=== PATIENT | female | born 1965 | race Caucasian/White ===

== ENCOUNTER 2020-02-29 12:37 | Inpatient (IN) | payer SELFPAY ==
[2020-02-29 13:32] LABS: #Basophils 0.1 thou/uL (0.0-0.2); #Eosinphils 0.1 thou/uL (0.0-0.7); #Lymphocytes 2.2 thou/uL (1.20-3.40); #Monocytes 0.4 thou/uL (0.11-0.59); #Neutrophils 5.9 thou/uL (1.40-6.50); %Basophils 0.7 % (0.0-1.0); %Eosinophils 1.4 % (0.0-10.0); %Lymphocytes 25.4 % (21.0-51.0); %Monocytes 4.2 % (0.0-10.0); %Neutrophils 68.2 % (42.0-75.0); Hemoglobin 16.1 g/dL (12.0-16.0); Mean Corpuscular HGB CONC 34.6 g/dL (32.0-36.0); Mean Corpuscular Hemoglobin 31.6 pg (27.0-31.0); Mean Corpuscular Volume 91.3 fL (78.0-98.0); Platelet Count 219 thou/uL (130-400); RBC Distribution Width 12.3 % (11.5-14.5); White Blood Cell (WBC) Count 8.7 thou/uL (4.8-10.8)
--- NOTE | 2020-02-29 13:42 | CT ---
CT BRAIN NONCONTRAST: DATE: 02/29/2020 HISTORY: 54-year-old female with left upper extremity weakness FINDINGS: There is no evidence of acute intra-axial or extra-axial hemorrhage. There is no midline shift or any other mass effect. There is no extra-axial fluid collection. The ventricles are normal in size and configuration. The tympanomastoid cavities, and the upper portions of the paranasal sinuses included in these images, are grossly clear. Calvarium is intact. IMPRESSION: Normal.
[2020-02-29 14:03] LABS: ALT (SGPT) 36 U/L (8-55); AST (SGOT) 30 U/L (5-34); Albumin 4.4 g/dL (3.5-5.0); Alkaline Phosphatase 145 U/L (40-110); Anion Gap 14 mmol/L (10-20); BUN (Urea Nitrogen) 13 mg/dL (9.8-20.1); Bilirubin, Total 0.9 mg/dL (0.2-1.2); Calc. Creatinine Clearance 0 mL/min (70-130); Calcium 9.2 mg/dL (7.8-10.44); Carbon Dioxide 27 mmol/L (22-29); Chloride 99 mmol/L (98-107); Estimated GFR-MDRD 77; Globulin 3.8 g/dL (2.4-3.5); Glucose 324 mg/dL (70-105); Potassium 3.5 mmol/L (3.5-5.1); Protein, Total 8.2 g/dL (6.0-8.3); Sodium 136 mmol/L (136-145)
[2020-02-29] MEDS ORDERED: Aspirin Chewable 81 MG TAB ONE (15:07)
--- NOTE | 2020-02-29 17:06 | PDOC.HHP ---
Hospitalist HPI - History of Present Illness left sided weakness for 3 days History of Present Illness: 54yo F w/ no MHx presents for left sided weakness. Had sudden onset left sided weakness 3 days ago, nearly complete, and was unable to ambulate. came back from work and also noticed weakness and slurred speech, but patient didn't think much of it so stayed home. Weakness progressively improved over the last couple of days but recurred today, so she came to the ED On encounter, sitting comfortably in bed and endorses improved left sided weakness. Denies fatigue, headache, change in vision, dysphagia, presyncope, syncope, seizure like activity, chest pain, palpitations, dyspnea, fall ED Course: In the ED, BP and blood glucose found to be grossly elevated, so was admitted for further observation Hospitalist ROS - Review of Systems All other systems reviewed; all pertinent +/- noted in HPI/Subj Hospitalist History - Past Medical History Source: patient Cardiac: reports: no pertinent history Pulmonary: reports: no pertinent history BUTTON SEWER: reports: no pertinent history Gastrointestinal: reports: no pertinent history Heme/Onc: reports: no pertinent history Hepatobiliary: reports: no pertinent history Psych: reports: no pertinent history Musculoskeletal: reports: no pertinent history Rheumatologic: reports: no pertinent history Infectious Disease: reports: no pertinent history ENT: reports: no pertinent history Renal/: reports: no pertinent history Endocrine: reports: no pertinent history Dermatology: reports: no pertinent history - Past Surgical History Past Surgical History: reports: no pertinent history - Family History Family History: reports: hypertension - Social History Smoking Status: Never smoker Alcohol: reports: Rare Drugs: reports: none Living Situation: With Family Activity level: independent ambulation - Exam General Appearance: NAD, awake alert General - other findings: morbidly obese Heart: no murmur, no gallops, no rubs, normal peripheral pulses Heart - other findings: regular rhythm, tachycardic Respiratory: CTAB, no wheezes, no rales, no ronchi, normal chest expansion, no tachypnea Gastrointestinal: soft, non-tender, non-distended, normal bowel sounds, no palpable masses, no hepatomegaly, no splenomegaly, no bruit Extremities: no edema Neurological: cranial nerve grossly intact, normal sensation to touch, no weakness, no focal deficits Musculoskeletal: normal tone, normal strength Psychiatric: normal affect, normal behavior, A&O x 3 Hospitalist Results - Labs Result Diagrams: 02/29/20 13:20 02/29/20 13:20 Lab results: WBC 8.7 thou/uL (4.8-10.8) 02/29/20 13:20 Hgb 16.1 g/dL (12.0-16.0) H 02/29/20 13:20 Hct 46.6 % (36.0-47.0) 02/29/20 13:20 MCV 91.3 fL (78.0-98.0) 02/29/20 13:20 Plt Count 219 thou/uL (130-400) 02/29/20 13:20 Neutrophils % 68.2 % (42.0-75.0) 02/29/20 13:20 Sodium 136 mmol/L (136-145) 02/29/20 13:20 Potassium 3.5 mmol/L (3.5-5.1) 02/29/20 13:20 Chloride 99 mmol/L (98-107) 02/29/20 13:20 Carbon Dioxide 27 mmol/L (22-29) 02/29/20 13:20 BUN 13 mg/dL (9.8-20.1) 02/29/20 13:20 Creatinine 0.78 mg/dL (0.6-1.1) 02/29/20 13:20 Glucose 324 mg/dL (70-105) H 02/29/20 13:20 Calcium 9.2 mg/dL (7.8-10.44) 02/29/20 13:20 Total Bilirubin 0.9 mg/dL (0.2-1.2) 02/29/20 13:20 AST 30 U/L (5-34) 02/29/20 13:20 ALT 36 U/L (8-55) 02/29/20 13:20 Alkaline Phosphatase 145 U/L (40-110) H 02/29/20 13:20 Troponin I Less than 0.010 ng/mL (< 0.028) 02/29/20 13:20 Serum Total Protein 8.2 g/dL (6.0-8.3) 02/29/20 13:20 Albumin 4.4 g/dL (3.5-5.0) 02/29/20 13:20 - EKG Interpretation EKG: sinus tachycardia with no other abnormalities - Radiology Interpretation CT scan - head Status: report reviewed by me Additional Comment: no intracranial hemorrhage or signs of ishcemia/infarction Hospitalist H&P A/P - Problem (1) Ischemic stroke Code(s): I63.9 - CEREBRAL INFARCTION, UNSPECIFIED Status: Acute (2) Hypertensive urgency Code(s): I16.0 - HYPERTENSIVE URGENCY Status: Acute (3) New onset type 2 diabetes mellitus Code(s): E11.9 - TYPE 2 DIABETES MELLITUS WITHOUT COMPLICATIONS Status: Acute - Plan Plan: * stroke * onset 3 days ago * NIHSS > 3 on symptoms onset based on patient's description * CT head showed no abnormalities * currently asymptomatic * * started on aspirin * US carotid * Echo * HTN urgency * BP grossly elevated on presentation * never treated for HTN * * started labetolol IV; lisinopril and chlorthalidone * T2DM (new onset) * BG > 300 on presentation * * lantus 10, humalog 4 tidac, low correction based on insulin naivity and weight * A1c * dispo/ppx * full code. surrogate is * DVT ppx: lovenox * GI PPx: no Ix
[2020-02-29 17:13] VITALS: BMI 39.4
[2020-02-29] MEDS ORDERED: Sodium Chloride 0.9% 1,000 ML IV SCH (17:15)
[2020-02-29] MEDS ORDERED: Dextrose 50% Abboject 50 ML SYRINGE SLOW IVP PRN (17:18)
[2020-02-29] MEDS ORDERED: Dextrose 5% in Water 1,000 ML IV PRN (17:18)
[2020-02-29] MEDS ORDERED: HumaLOG 300 UNITS/3 ML VIAL SC PRN (17:18)
[2020-02-29] MEDS ORDERED: Lisinopril 20 MG TAB PO SCH (17:30)
[2020-02-29] MEDS ORDERED: Labetalol HCl 100 MG/20 ML VIAL SLOW IVP SCH (17:30)
[2020-02-29] MEDS ORDERED: Enoxaparin Sodium 40 MG/0.4 ML SYRINGE SC SCH (17:30)
[2020-02-29] MEDS ORDERED: Chlorthalidone 25 MG TAB PO SCH (17:30)
[2020-02-29 17:53] LABS: Hemoglobin A1c 8.8 % (4.0-6.0)
--- NOTE | 2020-02-29 19:52 | ULT ---
BILATERAL CAROTID DUPLEX ULTRASOUND WITH SPECTRAL ANALYSIS AND COLOR FLOW EVALUATION: History: Stoke FINDINGS: Grayscale, color flow, and doppler evaluation with spectral analysis of the bilateral carotid arterie s is performed with 2D imaging. There is no significant atherosclerotic plaque seen within the caroti d arteries bilaterally. The mid and distal left ICA is not well seen secondary to depth of the vessels related to the skin ventura rface. However, there is otherwise less than 50% stenosis in the visualized bilateral internal caroti d arteries based on peak systolic velocities and ICA/CCA ratios. The peak systolic velocity in the ri ght ICA is 52.7 cm/sec with an ICA/CCA ratio of 0.8. The peak systolic velocity in the proximal left ICA is 55.8 cm/sec with an ICA/CCA ratio of 0.66. Again the mid and distal left ICA are not visualize d for adequate evaluation. Antegrade flow is demonstrated in the vertebral arteries bilaterally. IMPRESSION: 1. Nonvisualization of the mid and distal left ICA and narrowing in this region cannot be excluded. H owever, there is less than 50% maximal stenosis in the visualized proximal left ICA. 2. No hemodynamically significant stenosis involving the right ICA. 3. Follow up CTA neck maybe helpful for further evaluation of the mid and distal left ICA. POS: CARMEN
[2020-02-29] MEDS ORDERED: Atorvastatin Calcium 40 MG TAB PO SCH (21:00)
[2020-02-29] MEDS: HumaLOG 300 UNITS/3 ML VIAL SC SCH (21:03)
[2020-03-01] MEDS ORDERED: traMADol HCl 50 MG TAB PO PRN (00:22)
[2020-03-01] MEDS ORDERED: Acetaminophen 325 MG TAB PO PRN (00:23)
[2020-03-01 05:17] LABS: ALT (SGPT) 31 U/L (8-55); AST (SGOT) 29 U/L (5-34); Albumin 3.8 g/dL (3.5-5.0); Alkaline Phosphatase 117 U/L (40-110); Anion Gap 12 mmol/L (10-20); BUN (Urea Nitrogen) 11 mg/dL (9.8-20.1); Calc. Creatinine Clearance 151 mL/min (70-130); Calcium 8.6 mg/dL (7.8-10.44); Carbon Dioxide 26 mmol/L (22-29); Cardiac Risk 4.5 (Less than 4.5); Chloride 101 mmol/L (98-107); Cholesterol 171 mg/dl (< 200 Desired); Estimated GFR-MDRD 86; Globulin 3.3 g/dL (2.4-3.5); Glucose 277 mg/dL (70-105); HDL Cholesterol 38 mg/dL (>60 Neg Risk); LDL Cholesterol, Calculated 90 mg/dL; Potassium 3.4 mmol/L (3.5-5.1); Protein, Total 7.1 g/dL (6.0-8.3); Sodium 136 mmol/L (136-145); Triglycerides 216 mg/dL (Less than 150)
[2020-03-01] MEDS: HumaLOG 300 UNITS/3 ML VIAL SC SCH (06:06)
[2020-03-01] MEDS ORDERED: Potassium Chloride 20 MEQ TAB PO SCH (08:34)
[2020-03-01] MEDS ORDERED: Lisinopril 20 MG TAB PO SCH (09:00)
[2020-03-01] MEDS ORDERED: Aspirin 325 mg Enteric Coated Tablet PO SCH (09:00)
[2020-03-01] MEDS ORDERED: Enoxaparin Sodium 40 MG/0.4 ML SYRINGE SC SCH (09:00)
[2020-03-01] MEDS ORDERED: Chlorthalidone 25 MG TAB PO SCH (09:00)
[2020-03-01] MEDS ORDERED: Enoxaparin Sodium 30 MG/0.3 ML SYRINGE SC SCH (09:00)
[2020-03-01] MEDS ORDERED: Aspirin 81 mg Enteric Coated Tablet PO SCH (09:00)
--- NOTE | 2020-03-01 10:19 | MRI ---
MRI brain noncontrast HISTORY: Left-sided weakness. CVA. FINDINGS: Centered within the right side of the zohra is an irregular shaped focus of restricted diffu rupali with corresponding defect on ADC mapping images. Increased signal is also present on the FLAIR and T2-weighted images where the abnormality measures up to 1.1 cm greatest length. There are 2 adjac ent tiny foci of restricted diffusion and defect immediately medial to the larger, but remaining within the right side of the zohra. No mass effect or shift of midline structures. Mild chronic ischemic small vessel disease within the periventricular white matter. Visualized paranasal sinuses remain well aerated. IMPRESSION : Acute right pontine infarct.
--- NOTE | 2020-03-01 13:35 | CON ---
NEUROLOGY CONSULTATION DATE OF CONSULTATION: 03/01/2020 REASON FOR CONSULTATION: Left-sided weakness. HISTORY OF PRESENT ILLNESS: A 54-year-old female with no significant past medical history, presented with left-sided weakness for three days. On 02/26/2020 per patient, she had sudden onset of left-sided weakness and she was unable to ambulate. She called her who came back from work and noted she also had slurred speech and weakness progressively improved, so she decided not to come to the emergency room. Then on 02/28, it worsened again, so she decided to come to the emergency room for further evaluation. The patient denies nausea, vomiting, headache, focal paresthesias, visual deficits, problem with swallowing, loss of vision, normal voluntary movement, chest pain, palpitations, or shortness of breath. In the emergency room, her blood pressure was found to be elevated and so her blood glucose. She was admitted for further evaluation for stroke. Head CT was done, which did not reveal any acute intracranial pathology. REVIEW OF SYSTEMS: All other systems reviewed and all pertinent positives and negatives noted in the HPI. PAST MEDICAL HISTORY: None. PAST SURGICAL HISTORY: No significant past surgical history. FAMILY HISTORY: Significant for hypertension and smoke. SOCIAL HISTORY: The patient is , lives with her family. Denies smoking, alcohol, illegal drug use. HOME MEDICATIONS: None PHYSICAL EXAMINATION: VITAL SIGNS: Blood pressure 160/70, pulse 80, and respiratory rate 18. CVS: Regular rate and rhythm. CHEST: Clear. ABDOMEN: Soft. NEUROLOGIC: Mental status; the patient is alert and oriented to person, place, and time. Motor, muscle tone and bulk are normal. Strength 5/5 bilaterally. Cerebellar intact. Gait not tested because of the patient's safety reasons. Reflexes 2+ bilaterally. Motor, muscle tone and bulk are normal. Strength 5/5 on the right and 4+/5 on the left. Cerebellar, finger-nose testing intact, but slow on the left secondary to weakness. 02/29/20 13:20 Lab results: WBC 8.7 thou/uL (4.8-10.8) 02/29/20 13:20 Hgb 16.1 g/dL (12.0-16.0) H 02/29/20 13:20 Hct 46.6 % (36.0-47.0) 02/29/20 13:20 MCV 91.3 fL (78.0-98.0) 02/29/20 13:20 Plt Count 219 thou/uL (130-400) 02/29/20 13:20 Neutrophils % 68.2 % (42.0-75.0) 02/29/20 13:20 Sodium 136 mmol/L (136-145) 02/29/20 13:20 Potassium 3.5 mmol/L (3.5-5.1) 02/29/20 13:20 Chloride 99 mmol/L (98-107) 02/29/20 13:20 Carbon Dioxide 27 mmol/L (22-29) 02/29/20 13:20 BUN 13 mg/dL (9.8-20.1) 02/29/20 13:20 Creatinine 0.78 mg/dL (0.6-1.1) 02/29/20 13:20 Glucose 324 mg/dL (70-105) H 02/29/20 13:20 Calcium 9.2 mg/dL (7.8-10.44) 02/29/20 13:20 Total Bilirubin 0.9 mg/dL (0.2-1.2) 02/29/20 13:20 AST 30 U/L (5-34) 02/29/20 13:20 ALT 36 U/L (8-55) 02/29/20 13:20 Alkaline Phosphatase 145 U/L (40-110) H 02/29/20 13:20 Troponin I Less than 0.010 ng/mL (< 0.028) 02/29/20 13:20 Serum Total Protein 8.2 g/dL (6.0-8.3) 02/29/20 13:20 Albumin 4.4 g/dL (3.5-5.0) 02/29/20 13:20 LABORATORY DATA: I reviewed the labs, which showed hyperglycemia 324. The rest are essentially unremarkable. Head CT did not reveal any acute intracranial pathology. MRI of the brain showed right pontine stroke. ASSESSMENT AND PLAN: Ms. Mejía is admitted with new onset progressive left- sided weakness. An MRI of the brain reviewed which was consistent with acute right pontine infarct. Carotid Dopplers reviewed, which did not reveal hemodynamically significant stenosis. There is less than 50% maximal stenosis in the visualized proximal left internal carotid artery and there is nonvisualization of the mid and left ICA and narrowing and the region cannot be excluded. Echocardiography showed ejection fraction 55% to 60%. No evidence of thrombus or PFO. Continue neuro checks every 4 hours. Continue aspirin and statin for secondary stroke prevention, PT/OT/speech. Strict control of the blood pressure and blood glucose. Continue home medications. Continue medical management per primary team. . No further recommendations from neurological standpoint. Thank you for the consult. Job ID: [id number] FRANKLIN
--- NOTE | 2020-03-01 14:00 | DIS ---
DATE OF ADMISSION: 02/29/2020 DATE OF DISCHARGE: 03/01/2020 HOSPITAL COURSE: Ms. Mejía is a 54-year-old female with no known medical history who presented for left-sided weakness. Onset of symptoms was three days prior to presentation. In the ED, she was found to have mild left upper and lower extremity weakness that have resolved. She was diagnosed with acute right pontine infarct. During her admission, she was also found to be a newly diagnosed diabetic and hypertensive. She received diabetic education, however, refused to use insulin injections, so was started on metformin and requested to follow up with her primary care physician to follow up on glucose levels and necessity to start insulin regimen. Blood pressure medications were also prescribed and her blood pressure on the day of discharge was 163/85. She was discharged home, hemodynamically stable with no complaints and complete resolution of her left-sided weakness. PHYSICAL EXAMINATION: VITAL SIGNS: Blood pressure 163/85, pulse 95, respiratory rate 16, oxygen saturation 94 on room air, and 99.3 Fahrenheit. GENERAL: No apparent distress. Obese. CARDIAC: Regular rate and rhythm. No murmurs, gallops, or rubs. RESPIRATORY: Clear to auscultation bilaterally. No wheezing, rales, or rhonchi. GI: Soft, nontender, nondistended. Normal bowel sounds. EXTREMITIES: No edema. NEUROLOGIC: Cranial nerves grossly intact. Normal sensation to touch. No focal weakness. No gait imbalance. MUSCULOSKELETAL: Normal tone. Normal strength. PSYCHIATRIC: Normal affect. Normal behavior. Alert and oriented x3. MEDICATIONS: Old medications: No old medications. New medications: 1. Aspirin 325 p.o. daily for an additional 20 days and can go down daily. 2. Atorvastatin 80 mg at bedtime. 3. Chlorthalidone 25 mg daily. 4. Lisinopril 20 mg daily. 5. Metformin 500 mg b.i.d. (the patient refused to use injectable insulin). The patient was scheduled for followup appointment with primary care physician, which she does not have within a week. Job ID: [id number]
[2020-03-01 16:08] VITALS: BP 174/83; TEMP 98.2
[2020-03-01] MEDS ORDERED: metFORMIN 500 MG TAB PO SCH (17:00)
--- NOTE | 2020-03-03 15:34 | EKG ---
Test Reason : Blood Pressure : / mmHG Vent. Rate : 104 BPM Atrial Rate : 104 BPM P-R Int : 150 ms QRS Dur : 078 ms QT Int : 366 ms P-R-T Axes : 022 -10 040 degrees QTc Int : 481 ms Sinus tachycardia Inferior infarct , age undetermined Abnormal ECG Confirmed by MARGARITO LUX ([id number]), editor department TERRELL CONTRERAS ([id number]) on 03/03/2020 3:33:55 PM Referred By: Confirmed By:MARGARITO LUX
== END 2020-03-01 15:52 | disposition home or self-care (01) | DRG 65 ==
LOC: ERS 12:37 → 2SE 15:06 → OBSVTOIN 15:06
PROVIDERS: ADMIT Internal Medicine; ATTEND Internal Medicine
DX: I63.9 Cerebral infarction, unspecified (principal); G81.94 Hemiplegia, unspecified affecting left nondominant side; I16.0 Hypertensive urgency; I10 Essential (primary) hypertension; E11.65 Type 2 diabetes mellitus with hyperglycemia; I65.22 Occlusion and stenosis of left carotid artery; R29.703 NIHSS score 3; R40.2362 Coma scale, best motor response, obeys commands, at arrival to emergency department; R40.2142 Coma scale, eyes open, spontaneous, at arrival to emergency department; R40.2252 Coma scale, best verbal response, oriented, at arrival to emergency department; F12.10 Cannabis abuse, uncomplicated
CPT/HCPCS: 36415; 36416; 70450; 70551; 80053; 80061; 83036; 84484; 85025; 93005; 93306; 93880; 96360; 96361; J1650

== ENCOUNTER 2020-03-14 17:12 | Emergency (ER) | payer SELFPAY ==
--- NOTE | 2020-03-14 17:45 | RAD ---
Chest AP view INDICATION: Chest pain and palpitations COMPARISON: None FINDINGS: Lungs: The lungs are clear Cardiac silhouette: The cardiomediastinal silhouette appears within normal limits. Pulmonary vasculature: Normal Pleural spaces: No pleural effusion or pneumothorax is demonstrated. Upper abdomen: No abnormality seen. Osseous structures: No acute osseous abnormality. Additional findings: None. IMPRESSION: No acute cardiopulmonary abnormality.
[2020-03-14 17:52] LABS: #Basophils 0.1 thou/uL (0.0-0.2); #Eosinphils 0.2 thou/uL (0.0-0.7); #Monocytes 0.8 thou/uL (0.11-0.59); #Neutrophils 8.5 thou/uL (1.40-6.50); %Basophils 0.9 % (0.0-1.0); %Eosinophils 1.7 % (0.0-10.0); %Lymphocytes 29.1 % (21.0-51.0); %Monocytes 5.8 % (0.0-10.0); %Neutrophils 62.6 % (42.0-75.0); Hemoglobin 15.7 g/dL (12.0-16.0); Mean Corpuscular HGB CONC 35.3 g/dL (32.0-36.0); Mean Corpuscular Hemoglobin 32.4 pg (27.0-31.0); Mean Corpuscular Volume 91.8 fL (78.0-98.0); Mean Platelet Volume 10.4 fL (7.4-10.4); Platelet Count 255 thou/uL (130-400); RBC Distribution Width 12.2 % (11.5-14.5); Red Blood Cell (RBC) Count 4.86 mill/uL (4.20-5.40); White Blood Cell (WBC) Count 13.6 thou/uL (4.8-10.8)
[2020-03-14 18:14] LABS: ALT (SGPT) 85 U/L (8-55); AST (SGOT) 50 U/L (5-34); Albumin 4.5 g/dL (3.5-5.0); Alkaline Phosphatase 134 U/L (40-110); Anion Gap 16 mmol/L (10-20); BUN (Urea Nitrogen) 18 mg/dL (9.8-20.1); Bilirubin, Total 1.1 mg/dL (0.2-1.2); CK (CPK) 159 U/L (29-168); Calc. Creatinine Clearance 0 mL/min (70-130); Carbon Dioxide 21 mmol/L (22-29); Chloride 102 mmol/L (98-107); Estimated GFR-MDRD 70; Globulin 3.7 g/dL (2.4-3.5); Glucose 137 mg/dL (70-105); Lipase 63 U/L (8-78); Potassium 3.3 mmol/L (3.5-5.1); Protein, Total 8.2 g/dL (6.0-8.3); Sodium 136 mmol/L (136-145)
== END 2020-03-14 19:37 | disposition home or self-care (01) ==
LOC: ERS 17:12
DX: R53.1 Weakness (principal); T50.905A Adverse effect of unspecified drugs, medicaments and biological substances, initial encounter; R10.84 Generalized abdominal pain; Z86.73 Personal history of transient ischemic attack (TIA), and cerebral infarction without residual deficits
CPT/HCPCS: 71045; 80053; 82550; 83605; 83690; 84443; 84484; 85025; 93005; 96360

== ENCOUNTER 2020-07-16 12:23 | Inpatient (IN) | payer SELFPAY ==
[2020-07-16] MEDS ORDERED: Iopamidol-370 76% 500 ML 1 ML ONE (13:28)
[2020-07-16 13:36] LABS: #Basophils 0.1 thou/uL (0.0-0.2); #Eosinphils 0.1 thou/uL (0.0-0.7); #Lymphocytes 2.3 thou/uL (1.20-3.40); #Monocytes 0.5 thou/uL (0.11-0.59); #Neutrophils 6.2 thou/uL (1.40-6.50); %Basophils 0.6 % (0.0-1.0); %Eosinophils 1.5 % (0.0-10.0); %Monocytes 5.7 % (0.0-10.0); %Neutrophils 67.2 % (42.0-75.0); Hemoglobin 15.6 g/dL (12.0-16.0); Mean Corpuscular HGB CONC 35.1 g/dL (32.0-36.0); Mean Corpuscular Hemoglobin 32.2 pg (27.0-31.0); Mean Corpuscular Volume 91.8 fL (78.0-98.0); Mean Platelet Volume 9.3 fL (7.4-10.4); Platelet Count 244 thou/uL (130-400); RBC Distribution Width 12.1 % (11.5-14.5); Red Blood Cell (RBC) Count 4.83 mill/uL (4.20-5.40); White Blood Cell (WBC) Count 9.2 thou/uL (4.8-10.8)
--- NOTE | 2020-07-16 13:37 | CT ---
CT BRAIN WITHOUT CONTRAST: HISTORY: Left eyelid droop, double vision, right-sided weakness COMPARISON: 02/29/2020 FINDINGS: A small old infarction is seen in the right side of the zohra. No evidence of acute infarct, hemorrhag e, midline shift or abnormal extra-axial fluid collections is seen. The ventricular size is appropriate and the basilar cisterns are patent. The bony calvarium is intact. The visualized paranas al sinuses and mastoid air cells are well aerated. IMPRESSION: No CT evidence of acute intracranial process.
[2020-07-16 13:41] LABS: Prothrombin Time 13.5 sec (12.0-14.7)
[2020-07-16 13:42] LABS: PTT 36.2 sec (22.9-36.1)
[2020-07-16 13:57] LABS: ALT (SGPT) 12 U/L (8-55); AST (SGOT) 16 U/L (5-34); Albumin 4.6 g/dL (3.5-5.0); Alkaline Phosphatase 104 U/L (40-110); Anion Gap 13 mmol/L (10-20); BUN (Urea Nitrogen) 10 mg/dL (9.8-20.1); Bilirubin, Total 0.8 mg/dL (0.2-1.2); CK (CPK) 80 U/L (29-168); Calc. Creatinine Clearance 0 mL/min (70-130); Calcium 9.7 mg/dL (7.8-10.44); Carbon Dioxide 28 mmol/L (22-29); Chloride 103 mmol/L (98-107); Estimated GFR-MDRD 82; Globulin 3.9 g/dL (2.4-3.5); Glucose 107 mg/dL (70-105); Potassium 3.6 mmol/L (3.5-5.1); Protein, Total 8.5 g/dL (6.0-8.3); Sodium 140 mmol/L (136-145)
[2020-07-16] MEDS ORDERED: Aspirin Chewable 81 MG TAB ONE (14:57)
[2020-07-16] MEDS ORDERED: Acetaminophen 325 MG TAB PO PRN (15:09)
[2020-07-16] MEDS ORDERED: Bisacodyl 5 MG TAB PO PRN (15:09)
[2020-07-16] MEDS ORDERED: Ondansetron PF 4 MG/2 ML Vial IVP PRN (15:09)
[2020-07-16] MEDS ORDERED: Dextrose 5% in Water 1,000 ML IV PRN (15:27)
[2020-07-16] MEDS ORDERED: Dextrose 50% Abboject 50 ML SYRINGE SLOW IVP PRN (15:27)
[2020-07-16] MEDS ORDERED: HumaLOG 300 UNITS/3 ML VIAL SC PRN (15:27)
[2020-07-16 15:45] LABS: Hemoglobin A1c 4.5 % (4.0-6.0)
--- NOTE | 2020-07-16 16:00 | MRI ---
Exam: Brain MRI without contrast HISTORY: Stroke. COMPARISON: 03/01/2020 FINDINGS: Calvarial marrow signal intensity: Appropriate T1 signal Gradient echo sequence: No hemorrhage Brain parenchyma: No mass, mass effect or midline shift. Brain volume, age-appropriate. Cortical lindsey-white matter differentiation: Preserved Restricted diffusion: Central arterial flow is maintained. There is an acute infarct involving the mi dline and right posterior aspect of the zohra. There is associated T2 and FLAIR hyperintensity as well as restricted diffusion. Previously noted anterior right pontine infarct has associated mild vol ume loss and T2/FLAIR hyperintensities. White matter signal intensities: No significant T2, FLAIR white matter hyperintensities due to chron ic small vessel ischemic changes Sinuses: Adequate aeration of the paranasal sinuses and mastoid air cells. IMPRESSION: 1. Acute midline/posterior right pontine infarct.
--- NOTE | 2020-07-16 16:07 | HP ---
PRIMARY CARE PROVIDER: [facility]. CHIEF COMPLAINT: Double vision. HISTORY OF PRESENT ILLNESS: Ms. Mejía is a pleasant 54-year-old lady, who was seen at [facility] on July 16, 2020. She was hospitalized at this facility from February 28 to of this year for acute right pontine infarct. She was also diagnosed with diabetes mellitus during that hospitalization. It appears that the patient is not taking any medications at this time. Over the last 4 to 5 days, she has had diplopia when both eyes are open. She does not have monocular diplopia. She reports that she has chronic drooping of the right upper eyelid. She also reports weakness in left upper and lower extremities as well as decreased sensation on the right side of her face. She has been dropping things with her left hand at home. She is also having difficulty walking because of left lower extremity weakness. She reports that she had a recent intentional weight loss of about 20 pounds. She took low-dose aspirin today. She presented to the emergency room because of above complaints. REVIEW OF SYSTEMS: All systems were reviewed and found to be negative except for the pertinent positives mentioned above. PAST MEDICAL HISTORY: Cerebrovascular accident in February 2020. She was also diagnosed with diabetes mellitus and dyslipidemia at that time. SURGICAL HISTORY: Hysterectomy. SOCIAL HISTORY: The patient uses marijuana. She reports occasional alcohol use and denies tobacco use. PSYCHIATRIC HISTORY: Depression. FAMILY HISTORY: Significant for hypertension. ALLERGIES: NO KNOWN DRUG ALLERGIES. CURRENT MEDICATIONS: None. PHYSICAL EXAMINATION: GENERAL: Ms. Mejía is awake and alert, not in acute distress. VITAL SIGNS: Blood pressure is 168/90, pulse 71, respiratory rate 16, and oxygen saturation 99% on room air. She is afebrile. EYES: No scleral icterus. No conjunctival pallor. ENT: Moist mucosal membranes. No oropharyngeal erythema or exudates. NECK: Supple. Nontender. Trachea is midline. RESPIRATORY: Accessory muscles of breathing are not active. Chest wall movements are symmetric bilaterally. Lungs are clear to auscultation without wheeze, rhonchi, or crepitations. CARDIOVASCULAR: S1 and S2 are heard, regular. Peripheral pulses are palpable. ABDOMEN: Soft, nontender. Bowel sounds are heard. NEUROLOGIC: She is unable to look above horizontal level with her right eye. Otherwise, cranial nerves 2 through 12 are intact. Power is 4+/5 in the left upper and lower extremities, 5/5 on the right. Deep tendon reflexes are 2+. Plantars downgoing bilaterally. MUSCULOSKELETAL: Power in the 4 extremities as described above. SKIN: No rashes. LYMPHATIC: No cervical lymphadenopathy. PSYCHIATRIC: Normal mood. Normal affect. The patient is oriented to person, place, or time. LABORATORY DATA AND INVESTIGATIONS: Reviewed. I reviewed her electrocardiogram, which shows normal sinus rhythm, no ST changes to suggest an acute coronary syndrome. I also reviewed her noncontrast brain CT scan, which did not show any acute intracranial process. She has an unremarkable CBC, INR 1.0, unremarkable comprehensive metabolic profile and normal troponin-I. ASSESSMENT AND PLAN: Ms. Mejía is a pleasant 54-year-old lady, who was seen at [facility] on July 16, 2020. Her problem list includes: 1. Diplopia: Most likely secondary to cerebrovascular accident. She will be admitted to the hospital for further management. Neurology and Ophthalmology Services are being consulted. She will be started on aspirin. We will check 2D echocardiogram, CT angiogram of the neck, and MRI of the brain. 2. Diabetes mellitus type 2: We will recheck hemoglobin A1c. I will start her on Accu-Cheks and insulin sliding scale. 3. Dyslipidemia: Start the patient on statin, recheck fasting lipid profile. 4. Marijuana use: The patient has been counseled regarding marijuana cessation. Many thanks for allowing me to participate in your patient's care. Please feel free to contact me with any questions or concerns. LEVEL OF RISK: High. LEVEL OF COMPLEXITY: High. ESTIMATED LENGTH OF STAY IN THE HOSPITAL: Less than 2 midnights. Job ID: [id number]
[2020-07-16 17:47] VITALS: BMI 36.9
[2020-07-16] MEDS: Atorvastatin Calcium 40 MG TAB PO SCH (20:47)
[2020-07-16] MEDS ORDERED: traMADol HCl 50 MG TAB PO PRN (23:54)
[2020-07-17 05:17] LABS: #Basophils 0.1 thou/uL (0.0-0.2); #Eosinphils 0.2 thou/uL (0.0-0.7); #Lymphocytes 2.6 thou/uL (1.20-3.40); #Monocytes 0.5 thou/uL (0.11-0.59); #Neutrophils 5.6 thou/uL (1.40-6.50); %Basophils 1.1 % (0.0-1.0); %Eosinophils 2.4 % (0.0-10.0); %Lymphocytes 28.5 % (21.0-51.0); %Neutrophils 61.9 % (42.0-75.0); Hemoglobin 13.9 g/dL (12.0-16.0); Mean Corpuscular HGB CONC 35.3 g/dL (32.0-36.0); Mean Corpuscular Hemoglobin 32.3 pg (27.0-31.0); Mean Corpuscular Volume 91.4 fL (78.0-98.0); Mean Platelet Volume 9.7 fL (7.4-10.4); Platelet Count 203 thou/uL (130-400); Red Blood Cell (RBC) Count 4.31 mill/uL (4.20-5.40)
[2020-07-17 05:39] LABS: Anion Gap 11 mmol/L (10-20); BUN (Urea Nitrogen) 10 mg/dL (9.8-20.1); Calc. Creatinine Clearance 139 mL/min (70-130); Calcium 8.8 mg/dL (7.8-10.44); Carbon Dioxide 28 mmol/L (22-29); Cardiac Risk 3.8 (Less than 4.5); Chloride 105 mmol/L (98-107); Cholesterol 164 mg/dl (< 200 Desired); Estimated GFR-MDRD 85; Glucose 105 mg/dL (70-105); HDL Cholesterol 43 mg/dL (>60 Neg Risk); LDL Cholesterol, Calculated 99 mg/dL; Potassium 3.9 mmol/L (3.5-5.1); Sodium 140 mmol/L (136-145); Triglycerides 112 mg/dL (Less than 150)
--- NOTE | 2020-07-17 08:04 | PDOC.HOSPP ---
- Subjective Encounter Date: 07/17/20 Encounter Time: 08:03 Subjective: Patient states she has double vision that persists and a sensation of heaviness in her left arm without any numbness. States she is concerned about having to get back on her medications. She had taken herself off of all meds including Aspirin before she was admitted. She reports no issues overnight. Tolerating PO intake well without any n/v. Denies any chest pain, palpitations or shortness of breath. Has been using the walker to mobilize. Denies any other complaints. MRI Brain: Acute midline/posterior right pontine infarct. CTA - Low density focus involving right zohra, critical stenosis or occlusion of right posterior cerebral artery. Moderate narrowing of left posterior cerebral artery. - Objective Vital Signs & Weight: Vital Signs (12 hours) Temp Pulse Resp BP BP Pulse Ox 07/17/20 07:40 98 F 81 16 160/93 H 96 07/17/20 04:00 98.2 F 62 16 151/88 H 98 07/17/20 00:00 97.9 F 69 18 160/98 H 18 L Weight Weight 215 lb 5 oz I&O: 07/16/20 07/17/20 07/18/20 06:59 06:59 06:59 Intake Total 1150 Balance 1150 Result Diagrams: 07/17/20 04:47 07/17/20 04:47 Additional Labs: Accuchecks 07/17/20 07/16/20 05:38 20:59 POC Glucose 102 H 109 H Hospitalist ROS - Review of Systems Eyes: reports: other (Double vision) Respiratory: denies: cough, dry, shortness of breath, hemoptysis, SOB with excertion, pleuritic pain, sputum, wheezing, other Cardiovascular: denies: chest pain, palpitations, orthopnea, paroxysmal noc. dyspnea, edema, light headedness, other Gastrointestinal: denies: nausea, vomiting, abdominal pain, diarrhea, constipation, melena, hematochezia, other Musculoskeletal: reports: other (left arm heaviness) Neurological: reports: weakness (left arm/hand). denies: numbness, incoordination, change in speech, confusion, seizures, other - Medication Medications: Active Medications Generic Name Dose Route Start Last Admin Trade Name Freq PRN Reason Stop Dose Admin Acetaminophen 650 mg 07/16/20 15:09 07/16/20 20:47 Acetaminophen 325 Mg Tab PO 650 mg Q4H PRN Administration Headache/Fever/Mild Pain (1-3) Atorvastatin Calcium 40 mg 07/16/20 21:00 07/16/20 20:47 Atorvastatin Calcium 40 Mg Tab PO Not Given HS BRIAN - Exam General Appearance: NAD, awake alert Eye: anicteric sclera ENT: normocephalic atraumatic, no oropharyngeal lesions, moist mucosa Neck: supple, symmetric, no lymphadenopathy Heart: RRR, no murmur, no gallops, normal peripheral pulses Respiratory: CTAB, no wheezes, no rales, no ronchi, normal chest expansion, no tachypnea Gastrointestinal: soft, non-tender, non-distended, normal bowel sounds, no guarding, no rigidity Extremities: no edema Skin: normal turgor, no lesions, no rashes Neurological: vision deficit (Diploplia, right eye drifts below horizontal level (chronic)) Neurological - other findings: Power 4/5 in left upper extremity and both legs Musculoskeletal: normal tone Psychiatric: normal affect, A&O x 3 Hosp A/P (1) Ischemic stroke Code(s): I63.9 - CEREBRAL INFARCTION, UNSPECIFIED Status: Acute Plan: Neurology input appreciated. Continue ASA and statin. Unclear if surgical intervention is an option at this point. Awaiting Echo. PT/OT. Stroke team consulted. (2) Diplopia Code(s): H53.2 - DIPLOPIA Status: Acute Plan: Opthalmology review/input appreciated. (3) Diabetes mellitus type 2 in obese Code(s): E11.69 - TYPE 2 DIABETES MELLITUS WITH OTHER SPECIFIED COMPLICATION; E66.9 - OBESITY, UNSPECIFIED Status: Chronic Plan: Monitor glucose. Hgb A1C 4.5. (4) Dyslipidemia Code(s): E78.5 - HYPERLIPIDEMIA, UNSPECIFIED Status: Chronic Plan: Continue statin. (5) Marijuana use Code(s): F12.90 - CANNABIS USE, UNSPECIFIED, UNCOMPLICATED Status: Chronic
[2020-07-17] MEDS: Enoxaparin Sodium 40 MG/0.4 ML SYRINGE SC SCH (08:38)
[2020-07-17] MEDS: Aspirin 325 mg Enteric Coated Tablet PO SCH (08:38)
--- NOTE | 2020-07-17 14:10 | CON ---
NEUROLOGY CONSULTATION DATE OF CONSULTATION: 07/17/2020 REASON FOR CONSULTATION: Double vision/acute CVA. HISTORY OF PRESENT ILLNESS: Ms. Mejía is a 54-year-old female with history significant for prior CVA in February 2020 with similar presentation, diabetes, dyslipidemia, presented with diplopia. Per the patient, she became better after her first CVA. However, since the last one week, she has been dropping things from her left hand and she felt her left upper and lower extremities were heavy. She denies problems with swallowing or speech. However, the patient also reported that since the last one week, she has been having episodes of diplopia, which resolves on its own associated with brown objects in front of her eyes. She is on aspirin for secondary stroke prevention. She describes diplopia as seeing objects one over the other, which improves after she closes one eye. The patient denies nausea, vomiting, headache, chest pain, abdominal pain, recent illness, recent exposure to COVID, slurred speech, problem with swallowing, or focal paresthesias associated with diplopia. REVIEW OF SYSTEMS: Eyes: reports: other (Double vision) Respiratory: denies: cough, dry, shortness of breath, hemoptysis, SOB with excertion, pleuritic pain, sputum, wheezing, other Cardiovascular: denies: chest pain, palpitations, orthopnea, paroxysmal noc. dyspnea, edema, light headedness, other Gastrointestinal: denies: nausea, vomiting, abdominal pain, diarrhea, constipation, melena, hematochezia, other Musculoskeletal: reports: other (left arm heaviness) Neurological: reports: weakness (left arm/hand). denies: numbness, incoordination, change in speech, confusion, seizures, other PAST MEDICAL HISTORY: 1. CVA in February 2020. 2. Diabetes. 3. Dyslipidemia. PAST SURGICAL HISTORY: Hysterectomy. SOCIAL HISTORY: The patient is using marijuana. She drinks alcohol occasionally and denies tobacco abuse. PSYCHIATRIC HISTORY: Depression. FAMILY HISTORY: Significant for hypertension. ALLERGIES: NO KNOWN DRUG ALLERGIES. CURRENT MEDICATIONS: None. PHYSICAL EXAMINATION: VITAL SIGNS: Blood pressure 160/90, pulse 70, respiratory rate 18. General Appearance: NAD, awake alert Eye: anicteric sclera ENT: normocephalic atraumatic, no oropharyngeal lesions, moist mucosa Neck: supple, symmetric, no lymphadenopathy Heart: RRR, no murmur, no gallops, normal peripheral pulses Respiratory: CTAB, no wheezes, no rales, no ronchi, normal chest expansion, no tachypnea Gastrointestinal: soft, non-tender, non-distended, normal bowel sounds, no guarding, no rigidity Extremities: no edema Skin: normal turgor, no lesions, no rashes Neurological: Mental status; the patient is alert and oriented to person, place, and time. Recent and remote memory, clear. Fund of knowledge is appropriate. Speech is clear. Cranial nerves 2 through 12 intact except 3. Motor; muscle tone and bulk are normal. Strength 4+/5 in the left upper and lower extremities, 5/5 in the right upper and lower extremities. Sensory intact. Cerebellar, finger-nose testing intact. Gait deferred due to the patient's safety reasons. Vital Signs & Weight: Vital Signs (12 hours) Temp Pulse Resp BP BP Pulse Ox 07/17/20 07:40 98 F 81 16 160/93 H 96 07/17/20 04:00 98.2 F 62 16 151/88 H 98 07/17/20 00:00 97.9 F 69 18 160/98 H 18 L Weight Weight 215 lb 5 oz I&O: 07/16/20 07/17/20 07/18/20 06:59 06:59 06:59 Intake Total 1150 Balance 1150 Additional Labs: Accuchecks 07/17/20 07/16/20 05:38 20:59 POC Glucose 102 H 109 H Active Medications Generic Name Dose Route Start Last Admin Trade Name Freq PRN Reason Stop Dose Admin Acetaminophen 650 mg 07/16/20 15:09 07/16/20 20:47 Acetaminophen 325 Mg Tab PO 650 mg Q4H PRN Administration Headache/Fever/Mild Pain (1-3) Atorvastatin Calcium 40 mg 07/16/20 21:00 07/16/20 20:47 Atorvastatin Calcium 40 Mg Tab PO Not Given HS BRIAN DATA REVIEWED: I reviewed the CT scan, which was consistent with acute right pontine infarct. EKG showed normal sinus rhythm. CBC and INR were unremarkable. MRI Brain: Acute midline/posterior right pontine infarct. CTA - Low density focus involving right zohra, critical stenosis or occlusion of right posterior cerebral artery. Moderate narrowing of left posterior cerebral artery. ASSESSMENT AND PLAN: (1) Ischemic stroke Code(s): I63.9 - CEREBRAL INFARCTION, UNSPECIFIED Status: Acute (2) Diplopia Code(s): H53.2 - DIPLOPIA Status: Acute (3) Diabetes mellitus type 2 in obese Code(s): E11.69 - TYPE 2 DIABETES MELLITUS WITH OTHER SPECIFIED COMPLICATION; E66.9 - OBESITY, UNSPECIFIED Status: Chronic (4) Dyslipidemia Code(s): E78.5 - HYPERLIPIDEMIA, UNSPECIFIED Status: Chronic (5) Marijuana use Code(s): F12.90 - CANNABIS USE, UNSPECIFIED, UNCOMPLICATED Status: Chronic Ms. Mejía is a 54-year-old female, who presented to the [facility] on July 16, 2020, with diplopia, most likely secondary to acute infarction in the right pontine region. Continue aspirin and high-intensity statin for secondary stroke prevention. 2D echocardiogram pending. We will follow up on the results. Check hemoglobin A1c, fasting lipid panel, and TSH. Telemetry to rule out arrhythmia. Strict control of blood glucose and permissive control of blood pressure at this time. Neuro checks every 4 hours. Continue home medications. Continue medical management per primary team. PT/OT/Speech. The patient reported episodes of diplopia, which resolved on its own associated with seeing brown objects in front of the eyes, lasting for few minutes. Consider EEG to rule out cortical irritability in the occipital region to evaluate for seizure risk is negative for seizure activity We will continue to follow. Plan discussed in detail with the patient and the nursing staff. Thank you for the consult. Job ID: [id number] MTDD
--- NOTE | 2020-07-17 18:25 | EEG ---
DATE OF SERVICE: 07/17/2020 ATTENDING: Lois Guillermo MD This EEG was performed using 24-channel [employer] video digital EEG machine with 24-disk electrodes. This was an extended 2 hours 7 minutes of inpatient video EEG recording. Digital analysis of the EEG was done for spike and seizure detection, which revealed no abnormalities. BACKGROUND: The posterior background rhythm is 9 to 10 Hz. The background rhythm attenuates with eye opening and enhances with eye closure. HYPERVENTILATION: Performed. PHOTIC STIMULATION: Not performed. SLEEP: Drowsiness and sleep are observed. EEG DIAGNOSIS: Normal awake, drowsy, and sleep EEG. Job ID: [id number]
[2020-07-17] MEDS: Atorvastatin Calcium 40 MG TAB PO SCH (20:44)
[2020-07-18 05:27] LABS: #Basophils 0.1 thou/uL (0.0-0.2); #Eosinphils 0.3 thou/uL (0.0-0.7); #Lymphocytes 3.3 thou/uL (1.20-3.40); #Monocytes 0.7 thou/uL (0.11-0.59); #Neutrophils 5.8 thou/uL (1.40-6.50); %Basophils 0.9 % (0.0-1.0); %Eosinophils 2.6 % (0.0-10.0); %Lymphocytes 32.5 % (21.0-51.0); %Monocytes 7.3 % (0.0-10.0); %Neutrophils 56.6 % (42.0-75.0); Hemoglobin 13.8 g/dL (12.0-16.0); Mean Corpuscular HGB CONC 35.8 g/dL (32.0-36.0); Mean Corpuscular Hemoglobin 32.8 pg (27.0-31.0); Mean Corpuscular Volume 91.4 fL (78.0-98.0); Mean Platelet Volume 9.5 fL (7.4-10.4); Platelet Count 210 thou/uL (130-400); RBC Distribution Width 11.9 % (11.5-14.5); White Blood Cell (WBC) Count 10.2 thou/uL (4.8-10.8)
[2020-07-18 05:48] LABS: Anion Gap 14 mmol/L (10-20); BUN (Urea Nitrogen) 14 mg/dL (9.8-20.1); Calc. Creatinine Clearance 136 mL/min (70-130); Calcium 8.7 mg/dL (7.8-10.44); Carbon Dioxide 27 mmol/L (22-29); Chloride 105 mmol/L (98-107); Estimated GFR-MDRD 82; Glucose 90 mg/dL (70-105); Potassium 3.8 mmol/L (3.5-5.1); Sodium 142 mmol/L (136-145)
[2020-07-18 08:16] VITALS: BP 146/79; TEMP 98.2
[2020-07-18] MEDS: Aspirin 325 mg Enteric Coated Tablet PO SCH (09:14)
[2020-07-18] MEDS: Enoxaparin Sodium 40 MG/0.4 ML SYRINGE SC SCH (09:16)
--- NOTE | 2020-07-19 03:00 | DIS ---
DATE OF ADMISSION: 07/16/2020 DATE OF DISCHARGE: 07/18/2020 PRIMARY CARE PROVIDER: [facility]. DISCHARGE DIAGNOSES: 1. Acute ischemic cerebrovascular accident. 2. Diplopia. 3. Medication noncompliance. 4. History of marijuana use. CONDITION OF PATIENT ON THE DAY OF DISCHARGE: Stable. I assessed Ms. Mejía on the day of discharge. She denies any chest pain or shortness of breath. Vital signs are stable. S1 and S2 are heard, regular. Lungs are clear to auscultation bilaterally. CONSULTATIONS DURING THIS HOSPITALIZATION: Neurology, Dr. Guillermo; Ophthalmology, Dr. Holguin. HOSPITAL COURSE: Ms. Mejía is a pleasant 54-year-old lady, who was admitted to [facility] on July 18, 2020, for diplopia. MRI of the brain showed acute midline/posterior right pontine infarct. CT angiogram of [place] and neck showed evidence of an anatomical variant with what appears to be a prominent right posterior communicating artery which supplies to the most distal vertebral artery. The mid and proximal basilar arteries as well as each vertebral artery were very small in caliber. Focal area of critical stenosis or very short segment of occlusion involving the proximal right posterior cerebral artery with severe focal area of narrowing involving the mid right posterior cerebral artery. However, there was enhancement of the remainder of the right posterior cerebral artery. Moderate narrowing seen involving the proximal left posterior cerebral artery. Patent bilateral internal carotid arteries, patent bilateral middle cerebral and anterior cerebral arteries and low-density focus right zohra corresponding to an area of acute infarction on MRI exam. She has been started on aspirin and statin. She has been advised to discontinue marijuana use. She has also been advised to be compliant with her medications. 2D echocardiogram showed left ventricular ejection fraction of 55% to 60%, and E/A flow reversal suggestive of diastolic dysfunction. Electroencephalogram showed normal awake, drowsy, and sleep EEG. She was also seen by Ophthalmology Service. She has been recommended outpatient followup. Fasting lipid profile showed triglycerides 112, cholesterol 164, LDL cholesterol 99, and HDL cholesterol 43. She was also seen by Therapy Services and has been recommended discharge home with family support. DISCHARGE MEDICATIONS: She has been started on aspirin 325 mg daily and Lipitor 40 mg at bedtime. Otherwise, no change was made to her pre-admission home medications. POST ACUTE CARE FOLLOWUP: With primary care provider in 3 days and with Ophthalmology Service in 1 week. ACTIVITY: As tolerated. DIET: Heart-healthy. DISCHARGE DESTINATION: Home. TIME SPENT: Total amount of time spent coordinating this discharge: Thirty-two minutes. Please note that patient's hemoglobin A1c during this hospitalization was 4.5. Job ID: [id number]
--- NOTE | 2020-07-19 14:09 | CT ---
EXAM: CT angiogram head and neck with IV contrast and 3-D reconstructions PROVIDED CLINICAL HISTORY: Stroke. Diplopia. Decreased sensation right side of face. New weakness in left arm and leg. COMPARISON: CT head on 07/16/2020 and MRI brain on 07/16/2020 FINDINGS: Aortic arch is normal in caliber. 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 Large portion of the left subclavian artery is obscured by dense contrast in the left subclavian vein. The innominate artery and bilateral common carotid arteries are patent. The common carotid arteries as well as carotid artery bifurcations are deviated medially and seen in a prevertebral location. Minimal vascular calcifications are seen at the carotid artery bifurcations. The bilateral internal carotid arteries are patent. The bilateral vertebral arteries ar e both generally small in caliber and codominant and appear patent. However, there is obscuration of the origin of the left vertebral artery due to artifact from adjacent dense venous contrast. The basilar artery is small in caliber. There is evidence of a variant vascular anatomy with what breanna ears to be a right posterior communicating artery which does supply the distal most basilar artery. There is a short segment of critical stenosis or occlusion involving the origin and most proximal rig ht posterior cerebral artery with focal area of severe stenosis involving the mid right posterior cerebral artery. There is also moderate narrowing involving the most proximal left posterior cerebral artery. However, there is enhancement of the more distal bilateral cerebral arteries. The bilateral middle cerebral arteries are patent. The A1 segment right anterior cerebral artery is d ominant and essentially supplies the bilateral anterior cerebral arteries. The A1 segment left anterior cerebral artery is hypoplastic. This is a normal variant. No aneurysm is seen within the limitations of the technique of this exam. A low-density focus is seen in the right aspect of the zohra likely corresponding to area of acute inf arction seen on MRI brain. IMPRESSION: 1. There is evidence of an anatomical variant with what appears to be a prominent right posterior com municating artery which supplies the most distal vertebral artery. The mid and proximal basilar arteries as well as each vertebral artery are very small in caliber. 2. Focal area of critical stenosis or very short segment of occlusion involving the proximal right po sterior cerebral artery with severe focal area of narrowing involving the mid right posterior cerebral artery. However, there is enhancement of the remainder of the right posterior cerebral arter y. Moderate narrowing is seen involving the proximal left posterior cerebral artery. 3. Patent bilateral internal carotid arteries. 4. Patent bilateral middle cerebral and anterior cerebral arteries. 5. Low-density focus right zohra corresponding to area of acute infarction on MRI exam. 6. Above findings discussed Dr. Barr on 07/16/2020 at 1702 hours. Transcribed Date/Time: 07/19/2020 2:09 PM
--- NOTE | 2020-07-20 08:27 | CON ---
DATE OF CONSULTATION: 07/17/2020 REASON FOR CONSULTATION: Diplopia. HISTORY OF PRESENT ILLNESS: The patient had an acute right pontine infarct in mid February. She has had vertical diplopia for about the last 5 days. MRI on this admission showed a newer acute infarct involving the midline and right posterior zohra in addition to the previous right anterior pontine infarct. PHYSICAL EXAMINATION: On examination, visual acuity with +2.00 correction, was J-7 for the right eye and J-1 for the left eye. Norm-Pen intra-ocular pressure was 19 and 19 mmHg for the right eye, then 21 and 17 mmHg for the left eye. Pupil exam showed the right pupil being about 3 mm and the left pupil being about 2 mm. There was a minimal detectable reaction to light and there was no afferent pupillary defect. On motility examination, she is mostly aligned in primary gaze. The right eye shows no upgaze but full horizontal and down gaze. The left eye has full range of motion. On my examination, the facial sensation showed to be intact and symmetric. The right upper lid shows about 6 mm of ptosis. I did not do forced ductions on the right eye. Her pupils were dilated with Mydriacyl and Riki-Synephrine. The right optic nerve is smaller than normal with a cup/disk ratio of 0.1, and "full." The left optic nerve has a cup/disk ratio of 0.4, and is of normal size and showing no elevation. The remainder of the fundus exam, the retina and vessels was normal. 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 This seems to involve only the superior rectus, levator muscle, and to a small amount the pupil on the right side. I do not think this is a skew deviation. This simply needs observation and perhaps prisms for management of the diplopia in primary gaze. Job ID: [id number]
== END 2020-07-18 11:46 | disposition home or self-care (01) | DRG 65 ==
LOC: ERS 12:23 → INTOOBSV 14:41 → 2SE 14:41 → OBSVTOIN 14:41
PROVIDERS: ADMIT Internal Medicine; ATTEND Internal Medicine
DX: I63.9 Cerebral infarction, unspecified (principal); G81.94 Hemiplegia, unspecified affecting left nondominant side; H53.2 Diplopia; F32.9 Major depressive disorder, single episode, unspecified; F12.90 Cannabis use, unspecified, uncomplicated; E11.9 Type 2 diabetes mellitus without complications; E78.5 Hyperlipidemia, unspecified; R40.2362 Coma scale, best motor response, obeys commands, at arrival to emergency department; R40.2142 Coma scale, eyes open, spontaneous, at arrival to emergency department; R40.2252 Coma scale, best verbal response, oriented, at arrival to emergency department; R29.701 NIHSS score 1; Z86.73 Personal history of transient ischemic attack (TIA), and cerebral infarction without residual deficits; Z90.710 Acquired absence of both cervix and uterus; Z91.14 Patient's other noncompliance with medication regimen; H02.401 Unspecified ptosis of right eyelid
CPT/HCPCS: 36415; 36416; 70450; 70496; 70498; 70551; 80048; 80053; 80061; 82550; 83036; 84484; 85025; 85610; 85730; 93005; 93306; 95712; 95816; 95819; 96372; G0378; J1650; Q9967

== ENCOUNTER 2020-08-03 01:10 | Emergency (ER) | payer SELFPAY ==
[2020-08-03] MEDS ORDERED: Ketorolac Tromethamine 30 MG/ML VIAL ONE (02:23)
--- NOTE | 2020-08-03 07:34 | CT ---
PRELIMINARY REPORT/DIRECT RADIOLOGY/EMERGENCY AFTER HOURS PROCEDURE: EXAM: CT Head Without Intravenous Contrast. CLINICAL HISTORY: VISION CHANGES; 53F with PMHx of 2 prior strokes, second of which occurred at the [facility] of July 2020 and from which patient continues to have L leg weakness, R arm weakness, and R eyelid droop. She reports that days before each of her last strokes she had "vision changes," w francia she describes as seeing random colors in her vision. This morning at 12:55am she woke up and when she was getting out of bed she noted "zigzag lines" in her vision in both eyes, that continued w nelly her eyes were closed. These resolved within 3-5 minutes. She denies any new motor or sensory deficits. TECHNIQUE: Axial computed tomography images of the head/brain without intravenous contrast. COMPARISON: CTSR - CT BRAIN WO CON - 07/16/20 13:30 CDT FINDINGS: BRAIN: No acute intraparenchymal hemorrhage. No mass lesion. No CT evidence for acute territorial inf arct. No midline shift or extra-axial collection. VENTRICLES: No hydrocephalus. ORBITS: The orbits are unremarkable. SINUSES AND MASTOIDS: The paranasal sinuses and mastoid air cells are clear. SOFT TISSUES: No significant facial or scalp soft tissue swelling evident. No radiopaque foreign body is seen. BONES: No acute skull fracture. IMPRESSION: No evidence of acute intracranial hemorrhage. ELECTRONICALLY SIGNED BY: Quintin Ochoa MD Aug 03, 2020 2:13:27 AM CDT FINAL REPORT CT HEAD WITHOUT CONTRAST: DATE: 08/03/2020. COMPARISON: 07/16/2020. HISTORY: Left leg weakness, right eye weakness, right arm weakness. FINDINGS: I agree with the preliminary report. Imaged paranasal sinuses and mastoid air cells are well-aerated with no displaced calvarial fracture, intracranial hemorrhage, midline shift, or mass effect. IMPRESSION: No acute findings. Transcribed Date/Time: 08/03/2020 8:10 AM
== END 2020-08-03 03:11 | disposition home or self-care (01) ==
LOC: ERS 01:10
DX: R51.9 Headache, unspecified (principal); H53.2 Diplopia; F32.9 Major depressive disorder, single episode, unspecified; Z79.899 Other long term (current) drug therapy; Z79.82 Long term (current) use of aspirin; Z86.73 Personal history of transient ischemic attack (TIA), and cerebral infarction without residual deficits
CPT/HCPCS: 70450; 93005; 96372; J1885